=== PATIENT | female | born 1955 | race Caucasian/White ===

== ENCOUNTER 2023-12-26 18:50 | Emergency (ER) | payer BC, SELFPAY ==
[2023-12-26 18:53] VITALS: BP 132/78
[2023-12-26 21:26] VITALS: BP 118/75
--- NOTE | 2023-12-26 21:54 | ED.GENMED ---
History of Present Illness
General
Chief Complaint: DVT/Possible Blood Clot
Source: patient
Exam Limitations: none
Time Seen by Provider: 12/26/23 19:07
Nursing documentation reviewed up to this point in time: agreed with
Travel History
Have you had any contact with someone who has COVID-19?: No
Do you have any symptoms of coronavirus? Fever > 100 degrees, chills, cough, shortness of breath, sore throat, loss of taste or smell, muscle aches, or headache?: No
History of Present Illness
History of Present Illness:
Patient to ED with ccomplaint of swelling and discoloration to her left medial zarco. SHe has a fx to her foot and has been wearing an orthoboot for the past 4 weeks. She is concerned about DVT. No pain, no prior historyo f DVT. No sob,
cp/pressure. No other complaints.
Past History
Past History
ED Past Medical History: None
ED Past Surgical History: None
Review of Systems
Review of Systems
Allergies reviewed?: Yes
All Other Systems: ROS reviewed and negative except as documented in HPI and ROS
Constitutional: Reports no symptoms
EENT: Reports no symptoms
Respiratory: Reports no symptoms
Cardiac: Reports no symptoms
ABD/GI: Reports no symptoms
Musculoskeletal: Reports no symptoms
Skin: Reports other (Bruising to right zarco)
Neurological: Reports no symptoms
Psychiatric: Reports no symptoms
Phy Exam
General Physical Exam
General Presentation: well appearing and no apparent distress
General age: appears stated age
General Skin: warm and dry
General Habitus: normal
General Mental: alert
Musculoskeletal Exam
Musculoskeletal Exam: full ROM and neuro vasc intact
Skin Exam
Skin Exam: normal color, warm/dry, no rash and other (small hematoma to left zarco. Hard. Nonpainful. US obtained. No evidence of DVT)
Psychiatric Exam
Psychiatric Exam: normal mood/affect
Course
Orders/Labs/Results
Orders:
Orders
12/26/23 19:11
US Periph Venous LOWER Ext LT Urgent
Comment:
Reason For Exam: swelling left medial zarco
Vital Signs
Initial and Last Documented VS:
Initial Vital Signs
Temp Pulse Resp BP Pulse Ox
97.8 F 74 18 132/78 97
12/26/23 18:53 12/26/23 18:53 12/26/23 18:53 12/26/23 18:53 12/26/23 18:53
Last Documented Vital Signs
Temp Pulse Resp BP Pulse Ox
97.8 F 66 18 118/75 97
12/26/23 18:53 12/26/23 21:26 12/26/23 18:53 12/26/23 21:26 12/26/23 21:26
*Radiology
Radiology exam reviewed: radiology read reviewed
*Pulse Oximetry
Patient hypoxic: no
*Critical Care Note
Total Time (30-74mins, 75-104mins- exclusive of procedures): Not Applicable
ED Attending Note
-
Portions of this chart may have been created with voice recognition software.� Occasional wrong word or��sound alike� substitutions may have occurred due to the inherent limitations of voice recognition software.
Discharge Plan
Departure
Patient Disposition: Home (Routine Discharge)
Date of Disposition: 12/26/23
Time of Disposition: 21:49
Patient with high blood pressure during this ER visit?: No
Condition: Good
Covid-19: Not Applicable
Discharge Problem:
Hematoma
Instructions: Taking care of bruises
Referrals:
Pete Patton, DO [Family Provider] - Follow up in 2-3 days
Interventions
Interventions:
*Risk Screen - Suicide Last Done: 12/26/23 18:53
*General Assessment Last Done: 12/26/23 21:26
*Neglect/Abuse Screening Last Done: 12/26/23 18:53
ED- Fall Risk Assessment Last Done: 12/26/23 22:02
*ED COVID-19 Vaccine History Last Done: 12/26/23 21:26
*Nursing Disposition Last Done: 12/26/23 22:02
ED- Cardiac Assessment Last Done: 12/26/23 19:08
ED- Pulmonary Assessment Last Done: 12/26/23 19:08
ED-Peripheral Vascular Assessment Last Done: 12/26/23 19:09
ED-Skin Assessment Last Done: 12/26/23 19:08
Discharge Date and Time
Discharge Date/Time: 12/26/23 22:03
== END 2023-12-26 22:03 | disposition home or self-care (01) ==
LOC: EMR 18:50
PROVIDERS: EMERGENCY PHYSICIAN Emergency Medicine; FAMILY PHYSICIAN Family Medicine
DX: S80.12XA Contusion of left lower leg, initial encounter (principal); X58.XXXA Exposure to other specified factors, initial encounter
CPT/HCPCS: 99284; 93971

== ENCOUNTER → 2024-03-30 13:40 | Outpatient (REF) | payer BC, SELFPAY | LOC: HWRAD 13:40 | PROVIDERS: ATTENDING PHYSICIAN Obstetrics & Gynecology; FAMILY PHYSICIAN Family Medicine | DX: R14.0 Abdominal distension (gaseous) (principal) | CPT/HCPCS: 76830; 76856 ==

== ENCOUNTER → 2024-05-12 12:54 | Outpatient (REF) | payer BC, SELFPAY | LOC: HWRCS 12:54 | PROVIDERS: ATTENDING PHYSICIAN Internal Medicine Interventional Cardiology; FAMILY PHYSICIAN Family Medicine | DX: E78.00 Pure hypercholesterolemia, unspecified (principal) | CPT/HCPCS: 93306 ==

== ENCOUNTER → 2025-01-20 10:12 | Outpatient (REF) | payer BC, SELFPAY | LOC: HWRCS 10:12 | PROVIDERS: ATTENDING PHYSICIAN Internal Medicine Interventional Cardiology; FAMILY PHYSICIAN Family Medicine | DX: R06.02 Shortness of breath (principal); I34.1 Nonrheumatic mitral (valve) prolapse; R06.09 Other forms of dyspnea | CPT/HCPCS: 93306 ==

== ENCOUNTER → 2025-02-02 13:14 | Outpatient (REF) | payer BC, SELFPAY | LOC: RCS 13:14 | PROVIDERS: ATTENDING PHYSICIAN Internal Medicine Interventional Cardiology; FAMILY PHYSICIAN Family Medicine | DX: R06.02 Shortness of breath (principal); I34.1 Nonrheumatic mitral (valve) prolapse; R06.09 Other forms of dyspnea | CPT/HCPCS: 93017; 93350 ==